=== PATIENT | male | born 1995 | race Hispanic/Latino ===

== ENCOUNTER 2018-11-29 00:09 | Emergency (ER) | payer OTHER, SELFPAY ==
[2018-11-29] MEDS ORDERED: Ondansetron PF 4 MG/2 ML Vial ONE (00:19)
[2018-11-29 00:43] LABS: #Eosinphils 0.1 thou/uL (0.0-0.7); #Monocytes 1.3 thou/uL (0.11-0.59); #Neutrophils 13.6 thou/uL (1.40-6.50); %Basophils 0.2 % (0.0-1.0); %Eosinophils 0.3 % (0.0-10.0); %Lymphocytes 16.9 % (21.0-51.0); %Monocytes 7.3 % (0.0-10.0); %Neutrophils 75.3 % (42.0-75.0); Hemoglobin 15.2 g/dL (14.0-18.0); Mean Corpuscular HGB CONC 33.4 g/dL (32.0-36.0); Mean Corpuscular Volume 89.6 fL (78.0-98.0); Mean Platelet Volume 8.2 fL (7.4-10.4); Platelet Count 185 thou/uL (130-400); RBC Distribution Width 11.9 % (11.5-14.5); Red Blood Cell (RBC) Count 5.08 mill/uL (4.70-6.10)
[2018-11-29 00:50] LABS: INR-International Normal Ratio 1.1; PTT 25.5 SEC (22.9-36.1); Prothrombin Time 14.1 SEC (12.0-14.7)
[2018-11-29 01:01] LABS: ALT (SGPT) 42 U/L (8-55); AST (SGOT) 76 U/L (5-34); Albumin 4.8 g/dL (3.5-5.0); Alcohol 10 mg/dL (Less than 10); Alkaline Phosphatase 47 U/L (40-150); Anion Gap 14 mmol/L (10-20); BUN (Urea Nitrogen) 17 mg/dL (8.9-20.6); Bilirubin, Total 1.5 mg/dL (0.2-1.2); Calc. Creatinine Clearance 0 mL/min (70-130); Calcium 9.5 mg/dL (7.8-10.44); Carbon Dioxide 23 mmol/L (22-29); Chloride 106 mmol/L (98-107); Estimated GFR-MDRD Greater than 90; Globulin 2.9 g/dL (2.4-3.5); Glucose 103 mg/dL (70-105); Potassium 3.4 mmol/L (3.5-5.1); Protein, Total 7.7 g/dL (6.0-8.3); Sodium 140 mmol/L (136-145)
[2018-11-29] MEDS ORDERED: Adacel (T-DAP) 0.5 ML SYRINGE ONE (01:11)
[2018-11-29] MEDS ORDERED: Promethazine HCl 25 MG/ML VIAL ONE (01:18)
[2018-11-29 02:47] LABS: Amphetamine Not Detected (NotDetected); Barbiturates Screen Not Detected (NotDetected); Benzodiazepine Screen Not Detected (NotDetected); Cocaine Metabolite Screen Not Detected (NotDetected); Medtox Control Line Valid? VALID (VALID); Medtox Reader # READER 4; Methadone Not Detected (NotDetected); Methamphetamine Not Detected (NotDetected); Opiate Screen Not Detected (NotDetected); Oxycodone Screen Not Detected (NotDetected); Phencyclidine (PCP) Not Detected (NotDetected); THC/Cannabinoid Screen Not Detected (NotDetected); Tricyclic Screen Not Detected (NotDetected)
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
[2018-11-29] MEDS ORDERED: ISOVUE-370 76%-LOCM 1 ML ONE (13:50)
== END 2018-11-29 03:08 | disposition home or self-care (01) ==
LOC: ERS 00:09
DX: S22.31XA Fracture of one rib, right side, initial encounter for closed fracture (principal); S20.221A Contusion of right back wall of thorax, initial encounter; S60.512A Abrasion of left hand, initial encounter; V89.2XXA Person injured in unspecified motor-vehicle accident, traffic, initial encounter
CPT/HCPCS: 36415; 70450; 71260; 72125; 74177; 80053; 80306; 80307; 85025; 85610; 85730; 86850; 86900; 86901; 90471; 90715; 93005; 96361; 96365; 96375; G0390; J2405; J2550; Q9966